=== PATIENT | female | born 1995 | race Caucasian/White ===

== ENCOUNTER → 2025-01-25 | Outpatient (CLI) | payer OTHER ==
[2025-01-25 13:30] LABS: HEMATOCRIT 40.8 % (36.0-47.0); HEMOGLOBIN 13.7 g/dl (12.0-15.5); MEAN CORPUSCULAR HEMOGLOBIN 30.9 pg (27.0-33.0); MEAN CORPUSCULAR HGB CONC 33.6 g/dl (32.0-36.5); MEAN CORPUSCULAR VOLUME 91.9 fl (80.0-96.0); PLATELET COUNT, AUTOMATED 376 10^3/uL (150-450); RED BLOOD COUNT 4.44 10^6/uL (4.00-5.40); WHITE BLOOD COUNT 10.2 10^3/uL (4.0-10.0)
[2025-01-25 15:10] LABS: HIV 1&2 SCREEN NEGATIVE (NEGATIVE)
[2025-01-25 15:18] LABS: HEPATITIS C VIRUS ABY INDEX 0.02 INDEX (<0.8)
[2025-01-25 15:20] LABS: GC DNA AMPLIFICATION NEGATIVE (NEGATIVE)
== END ==
LOC: M PLALAB 10:47
PROVIDERS: ATTEND Obstetrics & Gynecology
DX: Z34.81 Encounter for supervision of other normal pregnancy, first trimester (principal)

== ENCOUNTER → 2025-05-29 | Outpatient (CLI) | payer OTHER ==
[2025-05-29 13:17] LABS: PLATELET COUNT, AUTOMATED 299 10^3/uL (150-450)
[2025-05-29 13:20] LABS: GLUCOSE CHALLENGE TEST 1 HOUR 91 MG/DL (LESS THAN 140)
[2025-05-29 13:52] LABS: HIV 1&2 SCREEN NEGATIVE (NEGATIVE)
[2025-05-29 13:59] LABS: HEPATITIS C VIRUS ABY INDEX < 0.02 INDEX (<0.8)
[2025-05-29 14:23] LABS: Trichomonas vaginalis (AMP) NOT DETECTED (NEGATIVE)
[2025-05-29 14:48] LABS: GC DNA AMPLIFICATION NEGATIVE (NEGATIVE)
== END ==
LOC: M PLALAB 09:53
PROVIDERS: ATTEND Obstetrics & Gynecology
DX: Z34.82 Encounter for supervision of other normal pregnancy, second trimester (principal)

== ENCOUNTER → 2025-06-03 | Outpatient (CLI) | payer OTHER | LOC: M WHC 09:11 | PROVIDERS: ATTEND Nurse Practitioner Family | DX: Z34.83 Encounter for supervision of other normal pregnancy, third trimester (principal); Z3A.28 28 weeks gestation of pregnancy ==

== ENCOUNTER → 2025-07-16 | Outpatient (CLI) | payer OTHER | LOC: M RAD 11:12 | PROVIDERS: ATTEND Obstetrics & Gynecology | DX: O69.81X0 Labor and delivery complicated by cord around neck, without compression, not applicable or unspecified (principal); Z3A.36 36 weeks gestation of pregnancy ==

== ENCOUNTER → 2025-07-30 | Outpatient (REF) | payer OTHER | LOC: M SFHCWAGY 12:54 | PROVIDERS: ATTEND Advanced Practice Midwife | DX: Z34.83 Encounter for supervision of other normal pregnancy, third trimester (principal) ==

== ENCOUNTER 2025-08-20 08:35 | Inpatient (IN) | payer OTHER ==
[~2025-08-20] VITALS: Ht 167.6 cm; Wt 88.2 kg
[2025-08-20] VITALS (10 sets, daily range): BP systolic 103–125; BP diastolic 59–84
[2025-08-20] MEDS ORDERED: LIDOCAINE 1% MDV 20 ML VIAL INFIL PRN (08:55)
[2025-08-20] MEDS ORDERED: PREN1CHW6 PO (09:02)
[2025-08-20] MEDS ORDERED: TUMS500C PO ×2 (09:03→10:22)
[2025-08-20] MEDS ORDERED: HOME MED LIST COMPLETE! XX SCH (09:05)
[2025-08-20] MEDS: miSOPROStol 50 MCG 1/2 TABLET SL SCH (09:58)
[2025-08-20 10:06] LABS: PLATELET COUNT, AUTOMATED 256 10^3/uL (150-450)
[2025-08-20 11:04] LABS: HEPATITIS C VIRUS ABY INDEX < 0.02 INDEX (<0.8)
[2025-08-20 11:10] LABS: HIV 1&2 SCREEN NEGATIVE (NEGATIVE)
[2025-08-20] MEDS: OXYTOCIN DRIP 30 UNITS in IV 1 EA IV SCH (23:58)
[2025-08-20] MEDS: LR 1,000 ML IV SCH (23:59)
[2025-08-21] VITALS (35 sets, daily range): BP systolic 105–132; BP diastolic 59–90; O2SAT 96–97
[2025-08-21] MEDS: PENICILLIN G POTASSIUM 5 MU IV 5 MU in DEXTROSE 5% (D5W) MINI-BAG PLU 100 ML IV STA (00:29)
[2025-08-21] MEDS ORDERED: NALOXONE INJ 0.4 MG/1 ML VIAL IV PRN (02:35)
[2025-08-21] MEDS ORDERED: LR 500 ML IV PRN (02:35)
[2025-08-21] MEDS ORDERED: EPIDURAL/PCA KEYS XX PRN (02:35)
[2025-08-21] MEDS ORDERED: ONDANSETRON 4MG/2ML VIAL IV PRN (02:35)
[2025-08-21] MEDS ORDERED: diphenhydrAMINE 50 MG/ML VIAL IV PRN (02:35)
[2025-08-21] MEDS: FENTANYL/ROPIVACAINE/NACL BAG 100 ML EPIDURAL SCH (02:40)
[2025-08-21] MEDS: PEN G POT 3,000,000 UNIT/50 ML 3,000,000 UNIT in IV 1 EA IV SCH (04:28)
[2025-08-21] MEDS: OXYTOCIN DRIP 30 UNITS in IV 1 EA IV PRN (06:18)
[2025-08-21] MEDS ORDERED: IBUPROFEN 600 MG TAB PO PRN (06:25)
[2025-08-21] MEDS ORDERED: ACETAMINOPHEN 325 MG TAB PO PRN (06:25)
[2025-08-21] MEDS ORDERED: METHYLERGONOVINE MALEATE 0.2 MG TAB PO PRN (06:25)
[2025-08-21] MEDS ORDERED: RHOGAM 300MCG (1500IU) INJ IM SCH (06:25)
[2025-08-21] MEDS: ACETAMINOPHEN 500 MG TAB PO PRN (07:28)
[2025-08-21] MEDS: PRENATAL VITAMINS CHEWABLE TABLET PO SCH (09:45)
[2025-08-21] MEDS: DOCUSATE SODIUM 100 MG CAPSULE PO PRN (10:06)
[2025-08-21] MEDS: DIBUCAINE 1% OINTMENT 30 GM TOP PRN (10:06)
[2025-08-21] MEDS: IBUPROFEN 800 MG TAB PO PRN (17:32)
[2025-08-22 06:00] VITALS: BP 128/84; O2SAT 100
[2025-08-23] MEDS ORDERED: MEASLES,MUMPS,RUBELLA VACCINE INJ (MMR-II) SC.IMMUN ONE (09:00)
== END 2025-08-22 16:00 | disposition home or self-care (01) | DRG 807 ==
LOC: M LDI 08:35 → M OBS 08-21 09:17
PROVIDERS: ADMIT Specialist; ATTEND Specialist
PROC: 3E033VJ Introduction of Other Hormone into Peripheral Vein, Percutaneous Approach (ICD-10-PCS; 2025-08-20)
PROC: 3E0DXGC Introduction of Other Therapeutic Substance into Mouth and Pharynx, External Approach (ICD-10-PCS; 2025-08-20)
PROC: 10E0XZZ Delivery of Products of Conception, External Approach (ICD-10-PCS; principal; 2025-08-21)
DX: O99.824 Streptococcus B carrier state complicating childbirth (principal); Z37.0 Single live birth; Z3A.39 39 weeks gestation of pregnancy; O70.0 First degree perineal laceration during delivery